=== PATIENT | male | born 1970 | race Caucasian/White ===

== ENCOUNTER 2016-10-06 17:51 | Emergency (ER) | payer BC ==
[~2016-10-06] VITALS: Ht 188 cm; Wt 112.7 kg
[2016-10-06] MEDS ORDERED: NORCO 325 MG-51 TA1 PO (20:16)
[2016-10-06] MEDS ORDERED: AUGMENTIN 875-1 EAC1 PO (20:16)
[2016-10-06 21:01] VITALS: BP 126/80
[2016-10-07] MEDS ORDERED: CIPRO500 M1 PO (13:00)
[2016-10-07] MEDS ORDERED: LIDOCAINE HC20 MG/M1 MM (13:01)
== END 2016-10-06 21:00 | disposition home or self-care (01) ==
LOC: ED 17:51
DX: J02.9 Acute pharyngitis, unspecified (principal)
CPT/HCPCS: J1885; J2270; J7030; Q9967

== ENCOUNTER 2016-10-07 08:29 | Emergency (ER) | payer BC ==
[~2016-10-07] VITALS: Ht 188 cm; Wt 109.1 kg
[~2016-10-07 08:29] MED LIST: AUGMENTIN 875-1 EAC1 PO; NORCO 325 MG-51 TA1 PO
[2016-10-07] MEDS ORDERED: CIPRO500 M1 PO (13:00)
[2016-10-07] MEDS ORDERED: LIDOCAINE HC20 MG/M1 MM (13:01)
[2016-10-07 13:13] VITALS: BP 117/66
== END 2016-10-07 13:09 | disposition home or self-care (01) ==
LOC: ED 08:29
DX: J06.0 Acute laryngopharyngitis (principal)
CPT/HCPCS: J1100; J7030

== ENCOUNTER → 2016-10-08 | Outpatient (CLI) | payer BC ==
[~2016-10-08] VITALS: Ht 188 cm; Wt 109.1 kg
[~2016-10-08] MED LIST changes: +CIPRO500 M1 PO; +LIDOCAINE HC20 MG/M1 MM
[2016-10-08 13:25] VITALS: BP 117/66
[2016-10-08 15:21] VITALS: BP 120/79
--- NOTE | 2016-10-08 15:23 | NUR ---
patient tolerated IV fluid infusion well, he slept thru the second bag, at time of discharge he is encouraged to follow-up with Dr. Mar if he feels necessary. discharged ambulatory to care of spouse.
== END ==
LOC: AMSURD 12:54
DX: E86.0 Dehydration (principal)
CPT/HCPCS: J7030

== ENCOUNTER 2021-02-16 18:21 | Emergency (ER) | payer BC ==
[2021-02-16] MEDS ORDERED: CEPHALEXIN500 M2 PO (20:21)
[2021-02-16 21:00] VITALS: BP 138/75
== END 2021-02-16 21:00 | disposition home or self-care (01) ==
LOC: ED 18:21
DX: S61.235A Puncture wound without foreign body of left ring finger without damage to nail, initial encounter (principal); Z23 Encounter for immunization; W29.4XXA Contact with nail gun, initial encounter
CPT/HCPCS: 90715

== ENCOUNTER → 2023-08-07 | Outpatient (CLI) | payer BC ==
[~2023-08-07] MED LIST changes: +CEPHALEXIN500 M2 PO
== END ==
LOC: VAS 08:45 → RAD 08:45
DX: R22.42 Localized swelling, mass and lump, left lower limb (principal)

== ENCOUNTER 2023-09-05 13:53 | Outpatient (RCR) | payer BC | END 2023-09-19 | disposition home or self-care (01) | LOC: PT | DX: R60.0 Localized edema (principal) ==